=== PATIENT | male | born 1975 | race African-American/Black ===

== ENCOUNTER 2019-08-10 00:19 | Emergency (ER) | payer OTHER ==
[~2019-08-10] VITALS: Ht 180.3 cm; Wt 188.7 kg
--- NOTE | 2019-08-10 00:40 | NUR ---
SHONNAF. TO ER BED 10. AAOX4, NAD NOTED. AMBULATORY W/ LIMP. C/O L ANKLE PAIN S/P STEPPING INTO A POTHOLE. PT REPORT THAT HE TWISTED HIS ANKLL WHEN HE STEPPED IN TO POT POTHOLE. PT REPORTS PAIN 8/10 ACHING. ROM INTACT. SENSATION FELT. WAS AT BEDSIDE FOR EVAL. ORDERS RECEIVED NOTED AND CARRIED OUT. X RAY AT BEDSIDE
[2019-08-10] MEDS ORDERED: IBUPROFEN 600 MG TABLET PO ONE ×2 (00:46→01:00)
[2019-08-10 01:48] VITALS: BP 118/72
== END 2019-08-10 01:48 | disposition home or self-care (01) ==
LOC: ER 00:26
DX: S93.492A Sprain of other ligament of left ankle, initial encounter (principal); I10 Essential (primary) hypertension; I25.2 Old myocardial infarction; J45.909 Unspecified asthma, uncomplicated; Z60.2 Problems related to living alone; X50.1XXA Overexertion from prolonged static or awkward postures, initial encounter; Y93.89 Activity, other specified; Y92.89 Other specified places as the place of occurrence of the external cause; Y99.8 Other external cause status
CPT/HCPCS: 73610-TC

== ENCOUNTER 2019-08-12 00:25 | Emergency (ER) | payer OTHER ==
[~2019-08-12] VITALS: Ht 180.3 cm; Wt 186.0 kg
--- NOTE | 2019-08-12 00:25 | NUR ---
TO ER BD 9 BIB EMS C/O SUDDEN ONSET NONRADIATING L SIDED CP WITH SOB, 0.4 NITRO AND 324 ASPIRIN. PT AAOX4 NO ACUTE DISTRESS NOTED, RESP EVEN AND UNLABORED. PLACE PT ON CARDIAC MONITORING, CONTINUOUS POX. PENDING ER MD LOUIE.
--- NOTE | 2019-08-12 00:26 | NUR ---
STARTED SL 18G TO [facility], BLOOD DRAWN AND SENT TO LAB.
[2019-08-12 00:52] LABS: BASOPHILS % (AUTO) 0.6 % (0.0-2.0); HEMATOCRIT 39 % (39-51); HEMOGLOBIN 12.6 g/dL (13.5-17.5); LYMPHOCYTES # (AUTO) 2.2 /CMM (0.8-4.8); MEAN CORPUSCULAR HGB CONC 32 g/dl (31.0-36.0); MEAN CORPUSCULAR VOLUME 79 fL (80-96); MONOCYTES # (AUTO) 0.8 /CMM (0.1-1.30); MONOCYTES % (AUTO) 9.9 % (2.0-12.0); NEUTROPHILS # (AUTO) 4.4 /CMM (1.8-8.9); NEUTROPHILS % (AUTO) 57.5 % (43.0-81.0); PLATELET COUNT (AUTO) 253 /CMM (150-450); RED BLOOD CELL COUNT(AUTO) 4.95 MIL/uL (4.5-6.0); WHITE BLOOD COUNT (AUTO) 7.7 K/uL (4.3-11.0)
[2019-08-12 01:00] LABS: CALCIUM, SERUM 9.2 mg/dL (8.5-10.1); CARBON DIOXIDE 26 mmol/L (21-32); CHLORIDE 103 mmol/L (98-107); CREATININE 1.2 mg/dL (0.6-1.3); GLUCOSE 125 mg/dL (74-106); POTASSIUM 3.8 mmol/L (3.5-5.1); SODIUM SERUM 140 mmol/L (136-145); UREA NITROGEN, BLOOD 11 mg/dL (7-18)
[2019-08-12 01:16] LABS: B-TYPE NATRIURETIC PEPTIDE 23 PG/ML (0-125)
[2019-08-12 03:59] VITALS: BP 127/72
--- NOTE | 2019-08-12 03:59 | NUR ---
Patient discharged to home in stable condition. Written and verbal after care instructions given. Patient verbalizes understanding of instruction.IV removed. Catheter intact and site benign. Pressure and 4x4 applied to site. No bleeding noted. PT ambulatory with a steady gait
== END 2019-08-12 04:01 | disposition home or self-care (01) ==
LOC: ER 00:26
DX: R07.89 Other chest pain (principal); I10 Essential (primary) hypertension; I25.2 Old myocardial infarction; J45.909 Unspecified asthma, uncomplicated; Z60.2 Problems related to living alone
CPT/HCPCS: 36415; 71045-TC; 80048-TC; 83880; 84484-TC; 85025-TC; 85730-TC